=== PATIENT | female | born 1975 | race Caucasian/White ===

== ENCOUNTER → 2019-12-25 | Outpatient (CLI) | payer OTHER ==
[~2019-12-25] MED LIST: ABILIFY5 MG PO; ADIPEX-P37.5 MG PO; AMBIEN 5MG TABLE5 MG PO; CELEXA10 MG PO; CELEXA40 MG PO; COLACE 100100 MG/CAP PO; DAZIDOX10 MG PO; DESYREL 50MG50 MG PO; IBU800 M1 PO; KLONOPIN0.5 MG PO; LORTAB 5/500 501 TAB PO; MULTI VITAMINS1 TAB PO; NAPROSYN500 MG PO; NEURONTIN100 MG/CAP; NORCO 325 MG-51 TAB PO; NORCO 325 MG-7.1 TAB PO; PERCOCET 325 MG1 TA2 PO; PHENERGAN 25 TA25 MG PO; PHENERGAN25 MG RC; TOPAMAX50 MG PO; WELLBUTRIN 100100 MG PO; WELLBUTRIN XL300 M1 PO; ZOFRAN ODT4 MG PO
== END ==
LOC: COL.RAD 11:42
DX: R22.1 Localized swelling, mass and lump, neck (principal)

== ENCOUNTER → 2023-09-18 | Outpatient (CLI) | payer OTHER | LOC: COL.RAD 12:28 | DX: M48.02 Spinal stenosis, cervical region (principal); M54.12 Radiculopathy, cervical region ==